=== PATIENT | male | born 1960 | race African-American/Black ===

== ENCOUNTER 2020-09-24 13:59 | Inpatient (IN) | payer OTHER ==
[~2020-09-24] VITALS: Ht 170.2 cm; Wt 104.1 kg
[2020-09-24] MEDS ORDERED: MORPHINE SULFATE 4 MG/ML SYR/VIAL IV ONE (14:15)
[2020-09-24] MEDS ORDERED: SODIUM CHLORIDE 0.9% 1,000 ML IVB ONE (14:15)
[2020-09-24] MEDS ORDERED: ONDANSETRON HCL 4 MG/2 ML VIAL IV ONE (14:15)
[2020-09-24 14:37] LABS: Basophils # (auto) 0 10 ^3/uL (0-0.2); Eosinophils # (auto) 0 10 ^3/uL (0-0.8); Hemoglobin 7.7 g/dL (13.5-17.5); Monocytes # (auto) 0.3 10 ^3/uL (0-1.3); Neutrophils # (auto) 1.6 10 ^3/uL (1.6-8.6); White Blood Cell 3.2 10^3/uL (4.4-10.8)
[2020-09-24 14:39] LABS: Basophils % (auto) 1.5 % (0.0-2.0); Eosinophils % (auto) 0.8 % (0.0-7.0); Hematocrit 27.4 % (41.0-53.0); Lymphocytes # (auto) 1.2 10 ^3/uL (0.4-5.4); Lymphocytes % (auto) 38.4 % (10.0-50.0); Mean Corpuscular Hemoglobin 16.4 pg (28.0-32.0); Mean Corpuscular Hgb Conc. 28.2 g/dL (32.0-36.0); Mean Corpuscular Volume 58.3 fL (80.0-100.0); Monocytes % (auto) 9.6 % (0.0-12.0); Neutrophils % (auto) 49.7 % (37.0-80.0); Nucleated Red Blood Cells % 0.2 %; Red Blood Cells 4.71 10^6/uL (4.5-5.90)
[2020-09-24 14:40] LABS: Red Cell Distribution Width 20.2 % (11.8-14.3)
[2020-09-24 14:57] LABS: Albumin 3.7 g/dL (3.4-5.0); BUN/Creatinine Ratio 9.5; Calcium 8.6 mg/dL (8.5-10.1); Potassium 3.9 mmol/L (3.5-5.1)
[2020-09-24 15:00] LABS: Bilirubin, Total 0.4 mg/dL (0.2-1.0); Total Protein 7.4 g/dL (6.4-8.2)
[2020-09-24 15:46] LABS: Urine Bacteria NONE SEEN /hpf (None Seen); Urine Blood 1+ /uL (Negative); Urine Mucus FEW (None Seen); Urine Specific Gravity 1.012 (1.001-1.035); Urine WBC 2 /hpf (0 - 3)
[2020-09-24] MEDS ORDERED: HYDROmorphone HCL 2 MG/ML VL IV ONE (16:30)
[2020-09-24] MEDS ORDERED: ONDANSETRON HCL 4 MG/2 ML VIAL IV PRN (17:45)
[2020-09-24] MEDS: methylPREDNISolone SOD SUCC 125 MG/2 ML VL IV SCH (21:57)
[2020-09-24] MEDS: NAPROXEN 500 MG TAB PO SCH (21:57)
[2020-09-25] MEDS: HYDROcodone-ACET 10/325MG TAB PO PRN (05:24)
[2020-09-25] MEDS ORDERED: TAM04C PO (06:49)
[2020-09-25] MEDS ORDERED: BUSP5TAB51 PO (06:49)
[2020-09-25] MEDS ORDERED: POTA10TA32 PO (06:49)
[2020-09-25 08:00] VITALS: BP 114/73
[2020-09-25 09:13] VITALS: BP 114/73
[2020-09-25] MEDS: SULFAMETHOX W/TRIMETH(800/160MG) DS TAB PO SCH ×2 (10:52→23:00)
[2020-09-25] MEDS: NAPROXEN 500 MG TAB PO SCH ×2 (10:52→23:01)
[2020-09-25] MEDS: ENOXAPARIN SOD 40 MG/0.4 ML SYRINGE SC SCH (10:52)
[2020-09-25] MEDS: PANTOPRAZOLE 40 MG TAB PO SCH ×2 (10:52→23:01)
[2020-09-25] MEDS: methylPREDNISolone SOD SUCC 125 MG/2 ML VL IV SCH (10:53)
[2020-09-25 12:55] VITALS: BP 132/86
[2020-09-25] MEDS: CARISOPRODOL 350 MG TAB PO SCH ×2 (15:32→23:02)
[2020-09-25] MEDS: TAMSULOSIN HYDROCHLORIDE 0.4 MG CAP PO SCH (16:10)
[2020-09-25 16:32] VITALS: BP 152/90
[2020-09-25 22:00] VITALS: BP 123/79
[2020-09-26] MEDS: methylPREDNISolone SOD SUCC 125 MG/2 ML VL IV SCH ×2 (00:19→09:18)
[2020-09-26 05:00] VITALS: BP 128/79
[2020-09-26 05:46] LABS: Basophils # (auto) 0 10 ^3/uL (0-0.2); Basophils % (auto) 0.1 % (0.0-2.0); Eosinophils # (auto) 0 10 ^3/uL (0-0.8); Hematocrit 26.3 % (41.0-53.0); Hemoglobin 7.6 g/dL (13.5-17.5); Mean Corpuscular Hemoglobin 16.8 pg (28.0-32.0)
[2020-09-26 05:49] LABS: Lymphocytes # (auto) 0.2 10 ^3/uL (0.4-5.4); Lymphocytes % (auto) 2.2 % (10.0-50.0); Mean Corpuscular Hgb Conc. 28.9 g/dL (32.0-36.0); Mean Corpuscular Volume 58.1 fL (80.0-100.0); Monocytes # (auto) 0.3 10 ^3/uL (0-1.3); Monocytes % (auto) 2.4 % (0.0-12.0); Neutrophils # (auto) 10.5 10 ^3/uL (1.6-8.6); Neutrophils % (auto) 95.3 % (37.0-80.0); Red Blood Cells 4.53 10^6/uL (4.5-5.90)
[2020-09-26] MEDS: CARISOPRODOL 350 MG TAB PO SCH ×3 (05:58→21:33)
[2020-09-26 06:00] LABS: Red Cell Distribution Width 20.6 % (11.8-14.3)
[2020-09-26 09:00] VITALS: BP 132/73
[2020-09-26] MEDS: PANTOPRAZOLE 40 MG TAB PO SCH ×2 (09:19→21:33)
[2020-09-26] MEDS: NAPROXEN 500 MG TAB PO SCH ×2 (09:19→21:33)
[2020-09-26] MEDS: SULFAMETHOX W/TRIMETH(800/160MG) DS TAB PO SCH ×2 (09:19→21:32)
[2020-09-26] MEDS: ENOXAPARIN SOD 40 MG/0.4 ML SYRINGE SC SCH (09:20)
[2020-09-26] MEDS: HYDROcodone-ACET 10/325MG TAB PO PRN ×3 (09:21→18:08)
[2020-09-26 13:00] VITALS: BP 133/83
[2020-09-26] MEDS: LACTULOSE 20Gm/30ML SOLN PO SCH ×4 (14:00→21:57)
[2020-09-26 17:00] VITALS: BP 127/85
[2020-09-26] MEDS: TAMSULOSIN HYDROCHLORIDE 0.4 MG CAP PO SCH (17:53)
[2020-09-26] MEDS: methylPREDNISolone SOD SUCC 40 MG/ML VL IV SCH (21:32)
[2020-09-26 22:00] VITALS: BP 108/69
[2020-09-27] MEDS: LACTULOSE 20Gm/30ML SOLN PO SCH ×5 (01:38→18:00)
[2020-09-27 05:00] VITALS: BP 134/84
[2020-09-27] MEDS: CARISOPRODOL 350 MG TAB PO SCH ×2 (05:23→14:15)
[2020-09-27 07:54] VITALS: BP 143/83
[2020-09-27] MEDS: HYDROcodone-ACET 10/325MG TAB PO PRN ×3 (08:42→18:22)
[2020-09-27] MEDS: SULFAMETHOX W/TRIMETH(800/160MG) DS TAB PO SCH (08:43)
[2020-09-27] MEDS: NAPROXEN 500 MG TAB PO SCH (08:43)
[2020-09-27] MEDS: PANTOPRAZOLE 40 MG TAB PO SCH (08:43)
[2020-09-27] MEDS: ENOXAPARIN SOD 40 MG/0.4 ML SYRINGE SC SCH (08:43)
[2020-09-27] MEDS: methylPREDNISolone SOD SUCC 40 MG/ML VL IV SCH (08:43)
[2020-09-27 12:30] VITALS: BP 138/81
[2020-09-27 12:32] VITALS: BP 143/83
[2020-09-27 16:36] VITALS: BP 130/76
[2020-09-27] MEDS: TAMSULOSIN HYDROCHLORIDE 0.4 MG CAP PO SCH (18:22)
== END 2020-09-27 19:30 | DRG 554 ==
LOC: ER 13:59 → EDSEX 13:59 → EEVIPCON 13:59 → EDBD 13:59 → OVERFLOW 17:54 → WEST WING 09-25 04:43
PROVIDERS: ADMIT Internal Medicine; ATTEND Internal Medicine
DX: M13.851 Other specified arthritis, right hip (principal); N13.8 Other obstructive and reflux uropathy; D64.9 Anemia, unspecified; F41.9 Anxiety disorder, unspecified; M54.9 Dorsalgia, unspecified; E78.5 Hyperlipidemia, unspecified; M41.86 Other forms of scoliosis, lumbar region; N40.1 Benign prostatic hyperplasia with lower urinary tract symptoms; Z20.822 Contact with and (suspected) exposure to COVID-19; I10 Essential (primary) hypertension; M47.816 Spondylosis without myelopathy or radiculopathy, lumbar region; Z80.42 Family history of malignant neoplasm of prostate; Z83.3 Family history of diabetes mellitus; Z82.3 Family history of stroke; Z87.442 Personal history of urinary calculi; Z86.73 Personal history of transient ischemic attack (TIA), and cerebral infarction without residual deficits; N41.9 Inflammatory disease of prostate, unspecified
CPT/HCPCS: 36415; 51702; 72100; 72170; 74018; 74176; 80053; 81001; 84154; 85025; 86850; 86900; 86901; 87426; 93005; 93971; 96361; 96374; 96375; G0378; J2405

== ENCOUNTER 2021-01-26 03:16 | Emergency (ER) | payer OTHER ==
[~2021-01-26] VITALS: Ht 170.2 cm; Wt 102.1 kg
[~2021-01-26 03:16] MED LIST: BUSP5TAB51 PO; POTA10TA32 PO; TAM04C PO
[2021-01-26 04:35] LABS: Urine Bacteria NONE SEEN /hpf (None Seen); Urine Blood Negative /uL (Negative); Urine Mucus FEW (None Seen); Urine Specific Gravity 1.013 (1.001-1.035); Urine WBC <1 /hpf (0 - 3)
[2021-01-26 08:56] VITALS: BP 150/84
== END 2021-01-26 09:00 ==
LOC: EEVIPCON 03:16 → ER 03:16
DX: N40.1 Benign prostatic hyperplasia with lower urinary tract symptoms (principal); R39.11 Hesitancy of micturition; K21.9 Gastro-esophageal reflux disease without esophagitis; J45.909 Unspecified asthma, uncomplicated; I10 Essential (primary) hypertension; E78.5 Hyperlipidemia, unspecified; Z86.73 Personal history of transient ischemic attack (TIA), and cerebral infarction without residual deficits; Z79.899 Other long term (current) drug therapy
CPT/HCPCS: 81001

== ENCOUNTER 2021-04-03 23:15 | Inpatient (IN) | payer OTHER ==
[~2021-04-03] VITALS: Ht 182.9 cm; Wt 107.0 kg
[2021-04-03 23:58] LABS: Basophils # (auto) 0.1 10 ^3/uL (0-0.2); Eosinophils # (auto) 0 10 ^3/uL (0-0.8); Hemoglobin 9.6 g/dL (13.5-17.5); Lymphocytes # (auto) 1.6 10 ^3/uL (0.4-5.4); Monocytes # (auto) 0.4 10 ^3/uL (0-1.3); Neutrophils # (auto) 1.6 10 ^3/uL (1.6-8.6); Neutrophils % (auto) 43.3 % (37.0-80.0); Red Cell Distribution Width 17.5 % (11.8-14.3); White Blood Cell 3.8 10^3/uL (4.4-10.8)
[2021-04-03 23:59] LABS: Basophils % (auto) 3.1 % (0.0-2.0); Eosinophils % (auto) 0.7 % (0.0-7.0); Hematocrit 32.9 % (41.0-53.0); Lymphocytes % (auto) 41.9 % (10.0-50.0); Mean Corpuscular Hemoglobin 19.1 pg (28.0-32.0); Mean Corpuscular Hgb Conc. 29.2 g/dL (32.0-36.0); Mean Corpuscular Volume 65.5 fL (80.0-100.0); Nucleated Red Blood Cells % 0.2 %; Red Blood Cells 5.03 10^6/uL (4.5-5.90)
[2021-04-04 00:13] LABS: Albumin 3.6 g/dL (3.4-5.0); BUN/Creatinine Ratio 10.6; Calcium 8.7 mg/dL (8.5-10.1); Potassium 3.5 mmol/L (3.5-5.1)
[2021-04-04 00:15] LABS: Bilirubin, Total 0.4 mg/dL (0.2-1.0)
[2021-04-04] MEDS ORDERED: ONDANSETRON HCL 4 MG/2 ML VIAL IV ONE (00:15)
[2021-04-04] MEDS ORDERED: MORPHINE SULFATE 4 MG/ML SYR/VIAL IV ONE (00:15)
[2021-04-04 01:25] LABS: Magnesium 1.8 mg/dL (1.6-2.6)
[2021-04-04 01:32] LABS: INR 1.07 (0.9-1.15); Partial Thromboplastin Time 27.6 sec (23.6-33.0)
[2021-04-04 02:26] LABS: Urine Bacteria NONE SEEN /hpf (None Seen); Urine Blood Negative /uL (Negative); Urine Mucus FEW (None Seen); Urine Specific Gravity 1.011 (1.001-1.035); Urine WBC 1 /hpf (0 - 3)
[2021-04-04] MEDS ORDERED: PANTOPRAZOLE 40 MG/10 ML VIAL INJ IV ONE (05:15)
[2021-04-04] MEDS ORDERED: ONDANSETRON HCL 4 MG/2 ML VIAL IM PRN (07:45)
[2021-04-04] MEDS ORDERED: NITROGLYCERIN 0.4 MG SL TAB SL PRN (08:00)
[2021-04-04] MEDS ORDERED: MORPHINE SULFATE INJECTION 2 MG/ML SYRG IV PRN (08:00)
[2021-04-04] MEDS ORDERED: ONDANSETRON HCL 4 MG/2 ML VIAL IV PRN (08:45)
[2021-04-04] MEDS: D5W/SOD CHL 0.45% 1,000 ML IV SCH ×2 (08:49→10:49)
[2021-04-04] MEDS ORDERED: DOCU100T15 PO (10:42)
[2021-04-04] MEDS ORDERED: ASPI1TAB37 PO (10:42)
[2021-04-04] MEDS ORDERED: AMLO-496 PO (10:42)
[2021-04-04] MEDS ORDERED: ATOR20TA50 PO (10:42)
[2021-04-04] MEDS ORDERED: OMEP20TA PO (10:42)
[2021-04-04] MEDS ORDERED: AMLO5CAP40 PO (10:54)
[2021-04-04] MEDS ORDERED: ALBUAER3 IN (10:54)
[2021-04-04] MEDS ORDERED: FERR324T25 PO (10:54)
[2021-04-04] MEDS ORDERED: GOLYTELY 4L KIT PO ONE (13:45)
[2021-04-04 22:37] VITALS: BP 150/94
[2021-04-05 05:11] VITALS: BP 142/99
[2021-04-05 05:46] LABS: Basophils # (auto) 0 10 ^3/uL (0-0.2); Eosinophils # (auto) 0.1 10 ^3/uL (0-0.8); Hemoglobin 9.3 g/dL (13.5-17.5); Lymphocytes # (auto) 1.1 10 ^3/uL (0.4-5.4); Red Cell Distribution Width 17.2 % (11.8-14.3); White Blood Cell 3.2 10^3/uL (4.4-10.8)
[2021-04-05 05:48] LABS: Basophils % (auto) 1.3 % (0.0-2.0); Eosinophils % (auto) 1.9 % (0.0-7.0); Hematocrit 31.9 % (41.0-53.0); Lymphocytes % (auto) 33.9 % (10.0-50.0); Mean Corpuscular Hemoglobin 19.2 pg (28.0-32.0); Mean Corpuscular Hgb Conc. 29.3 g/dL (32.0-36.0); Mean Corpuscular Volume 65.7 fL (80.0-100.0); Monocytes # (auto) 0.4 10 ^3/uL (0-1.3); Neutrophils # (auto) 1.7 10 ^3/uL (1.6-8.6); Neutrophils % (auto) 51.9 % (37.0-80.0); Red Blood Cells 4.86 10^6/uL (4.5-5.90)
[2021-04-05 06:00] LABS: Potassium 3.4 mmol/L (3.5-5.1)
[2021-04-05 06:08] LABS: BUN/Creatinine Ratio 8.2; Calcium 8.5 mg/dL (8.5-10.1)
[2021-04-05 09:00] VITALS: BP 134/80
[2021-04-05] MEDS: FINASTERIDE 5 MG TAB PO SCH (09:42)
[2021-04-05] MEDS: PANTOPRAZOLE 40 MG/10 ML VIAL INJ IV SCH ×2 (09:47→20:54)
[2021-04-05] MEDS ORDERED: SODIUM CHLORIDE LOCK 10 ML ONE (10:32)
[2021-04-05] MEDS ORDERED: diphenhdrAMINE HCL 50 MG/1 ML VL ONE (10:32)
[2021-04-05] MEDS: MIDAZOLAM HCL 5 MG/ML-1ML VIAL ONE ×2 (10:46→10:49)
[2021-04-05] MEDS: fentaNYL CITRATE 100 MCG/2 ML VL ONE ×2 (10:46→10:49)
[2021-04-05 13:00] VITALS: BP 136/89
[2021-04-05 17:00] VITALS: BP 116/84
[2021-04-05 22:15] VITALS: BP 136/87
[2021-04-05] MEDS: D5W/SOD CHL 0.45% 1,000 ML IV SCH (23:45)
[2021-04-06] MEDS ORDERED: ACETAMINOPHEN 650 mg PER 20.3 mL UD PO PRN ×2 (01:15)
[2021-04-06] MEDS ORDERED: ACETAMINOPHEN 325 MG TAB PO PRN (01:30)
[2021-04-06 05:21] VITALS: BP 154/97
[2021-04-06] MEDS: HYDROmorphone HCL 2 MG/ML VL IV PRN ×2 (06:09→21:41)
[2021-04-06 09:00] VITALS: BP 144/91
[2021-04-06] MEDS: FINASTERIDE 5 MG TAB PO SCH (10:27)
[2021-04-06] MEDS: PANTOPRAZOLE 40 MG/10 ML VIAL INJ IV SCH ×2 (10:28→21:27)
[2021-04-06 13:00] VITALS: BP 146/85
[2021-04-06 17:00] VITALS: BP 136/72
[2021-04-06] MEDS: D5W/SOD CHL 0.45% 1,000 ML IV SCH (19:57)
[2021-04-06 22:00] VITALS: BP 143/89
[2021-04-07 05:00] VITALS: BP 128/82
[2021-04-07 09:00] VITALS: BP 150/85
[2021-04-07] MEDS: FINASTERIDE 5 MG TAB PO SCH (10:51)
[2021-04-07] MEDS: PANTOPRAZOLE 40 MG/10 ML VIAL INJ IV SCH ×2 (10:51→22:40)
[2021-04-07 13:00] VITALS: BP 141/77
[2021-04-07] MEDS: HYDROmorphone HCL 2 MG/ML VL IV PRN (13:15)
[2021-04-07] MEDS: D5W/SOD CHL 0.45% 1,000 ML IV SCH (15:45)
[2021-04-07 16:52] VITALS: BP 136/82
[2021-04-07 22:00] VITALS: BP 124/80
[2021-04-08 05:42] VITALS: BP 129/88
[2021-04-08 08:15] VITALS: BP 152/90
[2021-04-08 08:52] VITALS: BP 152/90
[2021-04-08] MEDS: PANTOPRAZOLE 40 MG/10 ML VIAL INJ IV SCH (09:23)
[2021-04-08] MEDS: FINASTERIDE 5 MG TAB PO SCH (09:23)
[2021-04-08 11:05] VITALS: BP 158/90
== END 2021-04-08 12:30 | DRG 393 ==
LOC: ER 23:15 → EEVIPCON 23:15 → EDBD 23:15 → TELE 04-04 07:58 → TELE-WESTW 04-04 22:12
PROVIDERS: ADMIT Specialist; ATTEND Specialist
PROC: 0DJD8ZZ Inspection of Lower Intestinal Tract, Via Natural or Artificial Opening Endoscopic (ICD-10-PCS; principal; 2021-04-05 10:51)
DX: K64.8 Other hemorrhoids (principal); K57.31 Diverticulosis of large intestine without perforation or abscess with bleeding; I10 Essential (primary) hypertension; Z20.822 Contact with and (suspected) exposure to COVID-19; E78.5 Hyperlipidemia, unspecified; J45.909 Unspecified asthma, uncomplicated; N40.1 Benign prostatic hyperplasia with lower urinary tract symptoms; D50.0 Iron deficiency anemia secondary to blood loss (chronic); M19.90 Unspecified osteoarthritis, unspecified site; F41.9 Anxiety disorder, unspecified; K21.9 Gastro-esophageal reflux disease without esophagitis; R33.8 Other retention of urine; Z79.899 Other long term (current) drug therapy; Z82.49 Family history of ischemic heart disease and other diseases of the circulatory system; Z86.73 Personal history of transient ischemic attack (TIA), and cerebral infarction without residual deficits; Z87.442 Personal history of urinary calculi; Z88.0 Allergy status to penicillin; Z88.8 Allergy status to other drugs, medicaments and biological substances; Z90.49 Acquired absence of other specified parts of digestive tract; Z83.3 Family history of diabetes mellitus; Z80.8 Family history of malignant neoplasm of other organs or systems
CPT/HCPCS: 36415; 45378; 71045; 74176; 80048; 80053; 81001; 82150; 83690; 83735; 85025; 85610; 85730; 86850; 86900; 86901; 87081; 87426; 93005; 93306; 96361; 96374; 96375; C9113; G0378; J2250; J2405

== ENCOUNTER 2021-05-21 09:32 | Inpatient (IN) | payer OTHER ==
[~2021-05-21] VITALS: Ht 170.2 cm; Wt 104.9 kg
[~2021-05-21 09:32] MED LIST changes: +ALBUAER3 IN; +AMLO-496 PO; +ASPI1TAB37 PO; +ATOR20TA50 PO; -BUSP5TAB51 PO; +DOCU100T15 PO; +FERR324T25 PO; +OMEP20TA PO
[2021-05-21 11:56] LABS: Eosinophils # (auto) 0 10 ^3/uL (0-0.8); Eosinophils % (auto) 0.7 % (0.0-7.0); Monocytes # (auto) 0.4 10 ^3/uL (0-1.3); White Blood Cell 3.6 10^3/uL (4.4-10.8)
[2021-05-21 11:59] LABS: Basophils # (auto) 0 10 ^3/uL (0-0.2); Basophils % (auto) 0.6 % (0.0-2.0); Hematocrit 23.9 % (41.0-53.0); Lymphocytes # (auto) 1.3 10 ^3/uL (0.4-5.4); Lymphocytes % (auto) 35.7 % (10.0-50.0); Mean Corpuscular Hemoglobin 18.3 pg (28.0-32.0); Mean Corpuscular Hgb Conc. 29.2 g/dL (32.0-36.0); Mean Corpuscular Volume 62.7 fL (80.0-100.0); Monocytes % (auto) 10.4 % (0.0-12.0); Neutrophils # (auto) 1.9 10 ^3/uL (1.6-8.6); Neutrophils % (auto) 52.6 % (37.0-80.0); Nucleated Red Blood Cells % 0.2 %; Red Blood Cells 3.82 10^6/uL (4.5-5.90); Red Cell Distribution Width 18.7 % (11.8-14.3)
[2021-05-21 12:14] LABS: Hemoglobin 6.9 g/dL (13.5-17.5)
[2021-05-21 12:33] LABS: INR 1.04 (0.9-1.15); Partial Thromboplastin Time 25.4 sec (23.6-33.0)
[2021-05-21 13:06] LABS: Albumin 3.7 g/dL (3.4-5.0); Calcium 8.6 mg/dL (8.5-10.1); Potassium 4.4 mmol/L (3.5-5.1)
[2021-05-21 13:09] LABS: BUN/Creatinine Ratio 10.2; Bilirubin, Total 0.5 mg/dL (0.2-1.0)
[2021-05-21] MEDS ORDERED: NITROGLYCERIN 0.4 MG SL TAB SL PRN (14:30)
[2021-05-21] MEDS ORDERED: SODIUM CHLORIDE 0.9% 1,000 ML IV ONE (14:30)
[2021-05-21] MEDS ORDERED: MORPHINE SULFATE INJECTION 2 MG/ML SYRG IV PRN (14:30)
[2021-05-21] MEDS ORDERED: FINA5TAB4 PO (14:38)
[2021-05-21] MEDS ORDERED: FURO1TAB33 PO (14:38)
[2021-05-21] MEDS ORDERED: POTA10TA51 PO (14:38)
[2021-05-21] MEDS: HYDROcodone-ACET 10/325MG TAB PO PRN ×2 (16:56→22:48)
[2021-05-21] MEDS: ONDANSETRON HCL 4 MG/2 ML VIAL IV PRN ×2 (16:56→22:15)
[2021-05-21 17:40] VITALS: BP 133/81
[2021-05-21 17:55] VITALS: BP 136/76
[2021-05-21 18:25] VITALS: BP 125/76
[2021-05-21 18:55] VITALS: BP 136/82
[2021-05-21 20:40] VITALS: BP 112/67
[2021-05-21] MEDS: PANTOPRAZOLE 40 MG/10 ML VIAL INJ IV SCH (21:58)
[2021-05-21 22:00] VITALS: BP 132/92
[2021-05-22] VITALS (10 sets, daily range): BP systolic 111–129; BP diastolic 56–89
[2021-05-22] MEDS: ONDANSETRON HCL 4 MG/2 ML VIAL IV PRN (02:23)
[2021-05-22] MEDS: HYDROcodone-ACET 10/325MG TAB PO PRN ×3 (02:23→21:59)
[2021-05-22 07:25] LABS: Eosinophils # (auto) 0 10 ^3/uL (0-0.8); Mean Corpuscular Volume 64.5 fL (80.0-100.0); Neutrophils # (auto) 1.4 10 ^3/uL (1.6-8.6); Red Cell Distribution Width 19.7 % (11.8-14.3)
[2021-05-22 07:32] LABS: Basophils # (auto) 0.1 10 ^3/uL (0-0.2); Basophils % (auto) 1.7 % (0.0-2.0); Eosinophils % (auto) 1.5 % (0.0-7.0); Hematocrit 22.4 % (41.0-53.0); Lymphocytes # (auto) 1.3 10 ^3/uL (0.4-5.4); Lymphocytes % (auto) 41.5 % (10.0-50.0); Mean Corpuscular Hemoglobin 18.8 pg (28.0-32.0); Mean Corpuscular Hgb Conc. 29.1 g/dL (32.0-36.0); Monocytes # (auto) 0.3 10 ^3/uL (0-1.3); Monocytes % (auto) 9.3 % (0.0-12.0); Nucleated Red Blood Cells % 0.1 %; Red Blood Cells 3.47 10^6/uL (4.5-5.90)
[2021-05-22 07:36] LABS: Hemoglobin 6.5 g/dL (13.5-17.5)
[2021-05-22] MEDS: PANTOPRAZOLE 40 MG/10 ML VIAL INJ IV SCH ×2 (08:31→21:57)
[2021-05-22] MEDS: TAMSULOSIN HYDROCHLORIDE 0.4 MG CAP PO SCH (20:04)
[2021-05-23 05:00] VITALS: BP 125/70
[2021-05-23 07:15] LABS: Basophils # (auto) 0 10 ^3/uL (0-0.2); Basophils % (auto) 0.7 % (0.0-2.0); Eosinophils # (auto) 0.1 10 ^3/uL (0-0.8); Eosinophils % (auto) 1.6 % (0.0-7.0); Hematocrit 25.6 % (41.0-53.0); Hemoglobin 7.6 g/dL (13.5-17.5); Lymphocytes # (auto) 1.1 10 ^3/uL (0.4-5.4); Lymphocytes % (auto) 36.7 % (10.0-50.0); Mean Corpuscular Hemoglobin 19.7 pg (28.0-32.0); Mean Corpuscular Hgb Conc. 29.6 g/dL (32.0-36.0); Mean Corpuscular Volume 66.6 fL (80.0-100.0); Monocytes # (auto) 0.3 10 ^3/uL (0-1.3); Monocytes % (auto) 11.3 % (0.0-12.0); Neutrophils # (auto) 1.5 10 ^3/uL (1.6-8.6); Neutrophils % (auto) 49.7 % (37.0-80.0); Nucleated Red Blood Cells % 0.6 %; Red Blood Cells 3.84 10^6/uL (4.5-5.90); White Blood Cell 3.1 10^3/uL (4.4-10.8)
[2021-05-23 07:19] LABS: Red Cell Distribution Width 21.2 % (11.8-14.3)
[2021-05-23 08:49] VITALS: BP 119/71
[2021-05-23] MEDS: PANTOPRAZOLE 40 MG/10 ML VIAL INJ IV SCH ×2 (10:02→21:06)
[2021-05-23 12:42] VITALS: BP 126/80
[2021-05-23 16:33] VITALS: BP 136/73
[2021-05-23] MEDS: TAMSULOSIN HYDROCHLORIDE 0.4 MG CAP PO SCH (18:02)
[2021-05-23 22:00] VITALS: BP 115/65
[2021-05-24 05:28] VITALS: BP 140/86
[2021-05-24 08:19] LABS: Basophils # (auto) 0 10 ^3/uL (0-0.2); Eosinophils # (auto) 0 10 ^3/uL (0-0.8); Eosinophils % (auto) 0.4 % (0.0-7.0); Hemoglobin 7.5 g/dL (13.5-17.5); Lymphocytes # (auto) 0.7 10 ^3/uL (0.4-5.4); Lymphocytes % (auto) 25.9 % (10.0-50.0); Mean Corpuscular Hemoglobin 19.2 pg (28.0-32.0); Mean Corpuscular Volume 66.5 fL (80.0-100.0); Monocytes # (auto) 0.3 10 ^3/uL (0-1.3); Monocytes % (auto) 11.2 % (0.0-12.0); Neutrophils # (auto) 1.7 10 ^3/uL (1.6-8.6); Neutrophils % (auto) 61.5 % (37.0-80.0); Red Blood Cells 3.91 10^6/uL (4.5-5.90); Red Cell Distribution Width 21.6 % (11.8-14.3); White Blood Cell 2.8 10^3/uL (4.4-10.8)
[2021-05-24 09:00] VITALS: BP 139/86
[2021-05-24] MEDS: PANTOPRAZOLE 40 MG/10 ML VIAL INJ IV SCH ×2 (09:41→21:14)
[2021-05-24 12:34] VITALS: BP 132/86
[2021-05-24 16:40] VITALS: BP 140/102
[2021-05-24] MEDS: TAMSULOSIN HYDROCHLORIDE 0.4 MG CAP PO SCH (18:07)
[2021-05-24 22:02] VITALS: BP 125/96
[2021-05-25 05:30] VITALS: BP 109/75
[2021-05-25 06:23] LABS: Basophils # (auto) 0 10 ^3/uL (0-0.2); Basophils % (auto) 0.9 % (0.0-2.0); Eosinophils # (auto) 0 10 ^3/uL (0-0.8); Eosinophils % (auto) 0.9 % (0.0-7.0); Hematocrit 25.4 % (41.0-53.0); Hemoglobin 7.4 g/dL (13.5-17.5); Lymphocytes % (auto) 34.4 % (10.0-50.0); Mean Corpuscular Hemoglobin 19.1 pg (28.0-32.0); Mean Corpuscular Hgb Conc. 29.1 g/dL (32.0-36.0); Mean Corpuscular Volume 65.4 fL (80.0-100.0); Monocytes # (auto) 0.4 10 ^3/uL (0-1.3); Monocytes % (auto) 13.6 % (0.0-12.0); Neutrophils # (auto) 1.4 10 ^3/uL (1.6-8.6); Neutrophils % (auto) 50.2 % (37.0-80.0); Nucleated Red Blood Cells % 0.1 %; Red Blood Cells 3.88 10^6/uL (4.5-5.90); White Blood Cell 2.8 10^3/uL (4.4-10.8)
[2021-05-25 06:26] LABS: Red Cell Distribution Width 21.3 % (11.8-14.3)
[2021-05-25 06:40] LABS: Albumin 3.1 g/dL (3.4-5.0); Calcium 8.5 mg/dL (8.5-10.1)
[2021-05-25 06:45] LABS: BUN/Creatinine Ratio 6.1; Bilirubin, Total 0.7 mg/dL (0.2-1.0)
[2021-05-25 09:00] VITALS: BP 137/86
[2021-05-25] MEDS ORDERED: diphenhdrAMINE HCL 50 MG/1 ML VL ONE (09:07)
[2021-05-25] MEDS ORDERED: LIDOCAINE VISCOUS 2% 15ML UD ONE (09:09)
[2021-05-25] MEDS: MIDAZOLAM HCL 5 MG/ML-1ML VIAL ONE ×2 (09:40→09:43)
[2021-05-25] MEDS: fentaNYL CITRATE 100 MCG/2 ML VL ONE ×2 (09:40→09:43)
[2021-05-25] MEDS: DOCUSATE SOD 100 MG CAP PO SCH ×2 (10:33→21:58)
[2021-05-25] MEDS: PANTOPRAZOLE 40 MG TAB PO SCH (10:33)
[2021-05-25 12:36] VITALS: BP 115/72
[2021-05-25 16:59] VITALS: BP 119/79
[2021-05-25] MEDS: FERROUS SULFATE 325mg EC TAB PO SCH (17:56)
[2021-05-25] MEDS: TAMSULOSIN HYDROCHLORIDE 0.4 MG CAP PO SCH (17:57)
[2021-05-25] MEDS: HYDROCORTISONE ACET 25 MG RECTAL SUPP PR SCH (21:57)
[2021-05-25 22:00] VITALS: BP 112/70
[2021-05-26 05:00] VITALS: BP 108/67
[2021-05-26 07:27] LABS: Mean Corpuscular Volume 65.4 fL (80.0-100.0); White Blood Cell 2.8 10^3/uL (4.4-10.8)
[2021-05-26 07:29] LABS: Hematocrit 24.9 % (41.0-53.0); Hemoglobin 7.4 g/dL (13.5-17.5); Mean Corpuscular Hemoglobin 19.5 pg (28.0-32.0); Mean Corpuscular Hgb Conc. 29.9 g/dL (32.0-36.0); Red Blood Cells 3.81 10^6/uL (4.5-5.90)
[2021-05-26 07:49] LABS: Red Cell Distribution Width 21.1 % (11.8-14.3)
[2021-05-26 07:51] LABS: Band Neutrophils % (manual) 0; Basophils % (manual) 0 (0.0-2.0); Blast Cells 0; Eosinophils % (manual) 0 (0-7); Metamyelocytes % 0; Myelocytes % 0; Promyelocytes % 0; Reactive Lymphocytes 0
[2021-05-26] MEDS: FERROUS SULFATE 325mg EC TAB PO SCH (08:15)
[2021-05-26] MEDS: DOCUSATE SOD 100 MG CAP PO SCH (08:15)
[2021-05-26] MEDS: PANTOPRAZOLE 40 MG TAB PO SCH (08:15)
[2021-05-26] MEDS: HYDROCORTISONE ACET 25 MG RECTAL SUPP PR SCH (08:15)
[2021-05-26 08:30] VITALS: BP 125/83
[2021-05-26] MEDS ORDERED: DOCU100C10 PO (11:54)
[2021-05-26 12:30] VITALS: BP 113/81
[2021-05-26 12:54] LABS: Lymphocytes % (manual) 25 (10.0-50.0); Monocytes % (manual) 7 (0-12)
== END 2021-05-26 15:50 | DRG 393 ==
LOC: EDBD 09:32 → EEVIPCON 09:32 → ER 09:32 → OVERFLOW 09:33 → WEST WING 21:43
PROVIDERS: ADMIT Internal Medicine; ATTEND Internal Medicine
PROC: 30233N1 Transfusion of Nonautologous Red Blood Cells into Peripheral Vein, Percutaneous Approach (ICD-10-PCS; 2021-05-21)
PROC: 0DB68ZX Excision of Stomach, Via Natural or Artificial Opening Endoscopic, Diagnostic (ICD-10-PCS; principal; 2021-05-25 09:38)
DX: K64.9 Unspecified hemorrhoids (principal); K29.71 Gastritis, unspecified, with bleeding; E78.5 Hyperlipidemia, unspecified; I10 Essential (primary) hypertension; J45.909 Unspecified asthma, uncomplicated; D50.9 Iron deficiency anemia, unspecified; F41.9 Anxiety disorder, unspecified; Z20.822 Contact with and (suspected) exposure to COVID-19; K21.9 Gastro-esophageal reflux disease without esophagitis; K44.9 Diaphragmatic hernia without obstruction or gangrene; M79.89 Other specified soft tissue disorders; M19.90 Unspecified osteoarthritis, unspecified site; Z80.1 Family history of malignant neoplasm of trachea, bronchus and lung; Z82.3 Family history of stroke; Z82.49 Family history of ischemic heart disease and other diseases of the circulatory system; Z86.73 Personal history of transient ischemic attack (TIA), and cerebral infarction without residual deficits; Z86.16 Personal history of COVID-19; Z87.442 Personal history of urinary calculi; Z91.011 Allergy to milk products; Z88.0 Allergy status to penicillin; Z91.018 Allergy to other foods; Z90.49 Acquired absence of other specified parts of digestive tract
CPT/HCPCS: 36415; 36430; 43239; 71045; 74176; 80053; 85007; 85025; 85027; 85610; 85730; 86850; 86900; 86901; 86920; 87426; 93005; 93971; 96361; 96374; 96375; C9113; G0378; J2250; J2405

== ENCOUNTER 2024-01-19 05:18 | Inpatient (IN) | payer MEDICARE, MEDICAID ==
[~2024-01-19] VITALS: Ht 170.2 cm; Wt 108.5 kg
[~2024-01-19 05:18] MED LIST changes: -AMLO-496 PO; +AMLO1TAB23 PO; -ASPI1TAB37 PO; +DOCU-265 PO; -DOCU100T15 PO; +FINA5TAB4 PO; +FURO1TAB33 PO; -OMEP20TA PO; +POTA-36 PO; -POTA10TA32 PO; -TAM04C PO; +TAMS-35 PO
[2024-01-19 06:41] LABS: Basophils # (auto) 0 10 ^3/uL (0-0.2); Eosinophils # (auto) 0.1 10 ^3/uL (0-0.8); Lymphocytes # (auto) 1.1 10 ^3/uL (0.4-5.4); Monocytes # (auto) 0.4 10 ^3/uL (0-1.3); Nucleated Red Blood Cells % 0.1 %; White Blood Cell 3.9 10^3/uL (4.4-10.8)
[2024-01-19 06:43] LABS: Basophils % (auto) 0.5 % (0.0-2.0); Eosinophils % (auto) 1.5 % (0.0-7.0); Hemoglobin 12.8 g/dL (13.5-17.5); Lymphocytes % (auto) 28.9 % (10.0-50.0); Mean Corpuscular Hgb Conc. 32.1 g/dL (32.0-36.0); Monocytes % (auto) 9.2 % (0.0-12.0); Neutrophils # (auto) 2.4 10 ^3/uL (1.6-8.6); Neutrophils % (auto) 59.9 % (37.0-80.0); Red Blood Cells 4.94 10^6/uL (4.5-5.90); Red Cell Distribution Width 15.5 % (11.8-14.3)
[2024-01-19 06:46] LABS: Alanine Aminotransferase 20 U/L (7-40); Albumin 4.1 g/dL (3.2-4.8); Alkaline Phosphatase 86 U/L (46-116); Anion Gap 7 (5-15); Aspartate Aminotransferase 21 U/L (13-40); BUN/Creatinine Ratio 7.1 (10.0-20.0); Bilirubin, Total 0.7 mg/dL (0.2-1.0); Blood Urea Nitrogen 6 mg/dL (9-23); Calcium 9.7 mg/dL (8.7-10.4); Carbon Dioxide 23 mmol/L (20-30); Chloride 112 mmol/L (98-107); Glucose 91 mg/dL (74-106); Lipase 53 U/L (12-53); Potassium 3.6 mmol/L (3.5-5.1); Sodium 142 mmol/L (136-145); Total Protein 6.9 g/dL (5.7-8.2)
[2024-01-19 07:18] LABS: Urine Bacteria None Seen /hpf (None Seen)
[2024-01-19 07:30] LABS: Urine Blood Negative /uL (Negative); Urine Clarity Clear (Clear); Urine Color Colorless (Yellow); Urine Protein, UAD Negative (Negative); Urine Specific Gravity 1.007 (1.001-1.035); Urine Urobilinogen Normal (Negative); Urine WBC <1 /hpf (0 - 3); Urine pH 6.5 (5.0-9.0)
[2024-01-19] MEDS: KETOROLAC TROMETH 30 MG/ML 1ML VIAL IV ONE (08:31)
[2024-01-19] MEDS: cloNIDine HCL 0.1 MG TAB PO ONE (08:31)
[2024-01-19] MEDS ORDERED: NORT50CA57 PO (10:30)
[2024-01-19] MEDS ORDERED: SERT-289 PO (10:30)
[2024-01-19] MEDS ORDERED: ATEN25TA PO (10:30)
[2024-01-19] MEDS ORDERED: LISI20TA56 PO (10:30)
[2024-01-19] MEDS ORDERED: hydrALAZINE HCL 20 MG/ML VL IV PRN (10:45)
[2024-01-19] MEDS ORDERED: ALBUTEROL SULF 2.5 MG/0.5ML(0.5%) NEB SOLN NEB PRN (10:45)
[2024-01-19] MEDS ORDERED: ONDANSETRON HCL 4 MG/2 ML VIAL IV PRN (10:45)
[2024-01-19 11:34] LABS: Triglycerides 57 mg/dL (< 150)
[2024-01-19 11:35] LABS: LDL Cholesterol 45 mg/dL (< 100)
[2024-01-19 11:36] LABS: Cholesterol 125 mg/dL (< 200); HDL Cholesterol 66 mg/dL (40-59)
[2024-01-19] MEDS: HYDROcodone-ACET 5/325MG TAB PO PRN (14:07)
[2024-01-19 14:11] VITALS: PULSE 59; RESP 18; O2SAT 98
[2024-01-19] MEDS: MORPHINE SULFATE INJ 2 MG/ml SYRG IV PRN (15:33)
[2024-01-19 15:34] VITALS: BP 142/95; PULSE 61; RESP 20; TEMP 98; O2SAT 98
[2024-01-19 15:47] VITALS: PULSE 44; RESP 18; O2SAT 95
[2024-01-19 20:00] VITALS: PULSE 52
[2024-01-19 21:00] VITALS: BP 134/92; PULSE 51; RESP 19; TEMP 98.6; O2SAT 97
[2024-01-19 21:33] VITALS: BP 134/92; PULSE 60; RESP 18; TEMP 98.6; O2SAT 96; O2SAT 98
[2024-01-19] MEDS: DOCUSATE SOD 100 MG CAP PO SCH (21:56)
[2024-01-20] VITALS (9 sets, daily range): BP systolic 107–165; BP diastolic 56–97; PULSE 46–99; RESP 16–21; TEMP 98–98.3; O2SAT 96–100
[2024-01-20 05:10] LABS: Basophils # (auto) 0 10 ^3/uL (0-0.2); Basophils % (auto) 0.8 % (0.0-2.0); Eosinophils # (auto) 0.1 10 ^3/uL (0-0.8); Lymphocytes # (auto) 1.1 10 ^3/uL (0.4-5.4); Monocytes # (auto) 0.3 10 ^3/uL (0-1.3); Neutrophils # (auto) 1.8 10 ^3/uL (1.6-8.6); Nucleated Red Blood Cells % 0.1 %; White Blood Cell 3.3 10^3/uL (4.4-10.8)
[2024-01-20 05:13] LABS: Eosinophils % (auto) 1.8 % (0.0-7.0); Hematocrit 40.7 % (41.0-53.0); Lymphocytes % (auto) 33.7 % (10.0-50.0); Mean Corpuscular Hemoglobin 25.8 pg (28.0-32.0); Mean Corpuscular Hgb Conc. 31.8 g/dL (32.0-36.0); Monocytes % (auto) 9.4 % (0.0-12.0); Neutrophils % (auto) 54.3 % (37.0-80.0); Red Blood Cells 5.02 10^6/uL (4.5-5.90); Red Cell Distribution Width 15.8 % (11.8-14.3)
[2024-01-20 05:24] LABS: Alanine Aminotransferase 18 U/L (7-40); Albumin 3.9 g/dL (3.2-4.8); Alkaline Phosphatase 82 U/L (46-116); Anion Gap 4 (5-15); Aspartate Aminotransferase 15 U/L (13-40); BUN/Creatinine Ratio 7.7 (10.0-20.0); Blood Urea Nitrogen 7 mg/dL (9-23); Calcium 9.7 mg/dL (8.7-10.4); Carbon Dioxide 27 mmol/L (20-30); Chloride 111 mmol/L (98-107); Glucose 95 mg/dL (74-106); Potassium 3.7 mmol/L (3.5-5.1); Sodium 142 mmol/L (136-145)
[2024-01-20 05:25] LABS: Total Protein 6.5 g/dL (5.7-8.2)
[2024-01-20] MEDS: TAMSULOSIN HYDROCHLORIDE 0.4 MG CAP PO SCH (09:04)
[2024-01-20] MEDS: ATORVASTATIN 20 MG TAB PO SCH (09:05)
[2024-01-20] MEDS: FUROSEMIDE 20 MG TAB PO SCH (09:05)
[2024-01-20] MEDS: POTASSIUM CHLORIDE 8 MEQ TAB PO SCH (09:05)
[2024-01-20] MEDS: amLODIPine BESYLATE 5 MG TAB PO SCH (09:06)
[2024-01-20] MEDS: FINASTERIDE 5 MG TAB PO SCH (09:06)
[2024-01-20] MEDS: LISINOPRIL 20 MG TAB PO SCH (09:06)
[2024-01-20] MEDS: ENOXAPARIN SOD 40 MG/0.4 ML SYRINGE SC SCH (09:10)
[2024-01-20] MEDS: SERTRALINE HCL 50 MG TAB PO SCH (10:00)
[2024-01-20] MEDS ORDERED: NORTRIPTYLINE HCL 25 MG CAP PO SCH (10:00)
[2024-01-20] MEDS: ATENOLOL 25 MG TAB PO SCH (10:00)
[2024-01-20] MEDS: Ferrous Gluconate 324 MG TAB PO SCH (10:00)
[2024-01-20] MEDS ORDERED: OXYB5TAB14 PO (16:16)
[2024-01-20] MEDS ORDERED: QUET100T47 PO (16:16)
[2024-01-21] VITALS (10 sets, daily range): BP systolic 98–142; BP diastolic 69–104; PULSE 54–70; RESP 17–21; TEMP 97.3–98.1; O2SAT 96–99
[2024-01-21 08:06] LABS: PSA Free 0.97 ng/mL
[2024-01-21 09:06] LABS: Prostate Specific Antigen 5.2 ng/mL (0.0-4.0)
[2024-01-22] VITALS (9 sets, daily range): BP systolic 116–136; BP diastolic 70–91; PULSE 50–95; RESP 20–21; TEMP 97.6–98; O2SAT 94–97
[2024-01-22] MEDS: CARISOPRODOL 350 MG TAB PO SCH (13:31)
[2024-01-23] VITALS (11 sets, daily range): BP systolic 96–133; BP diastolic 63–87; PULSE 44–70; RESP 16–18; TEMP 97.5–98.3; O2SAT 95–100
[2024-01-24] VITALS (10 sets, daily range): BP systolic 88–147; BP diastolic 59–99; PULSE 47–91; RESP 16–20; TEMP 97.5–98.3; O2SAT 94–100
[2024-01-24] MEDS ORDERED: LIDOCAINE HCL 5 % TOP OINT 35 GM TOP PRN (11:45)
[2024-01-24] MEDS: SODIUM CHLORIDE 0.9% 1,000 ML IV ONE (12:30)
[2024-01-24] MEDS: SODIUM CHLORIDE 0.9% 1,000 ML IV SCH (15:30)
[2024-01-24] MEDS: LIDOCAINE HCL 5 % TOP OINT 35 GM TOP SCH (18:04)
[2024-01-25] VITALS (8 sets, daily range): BP systolic 96–153; BP diastolic 63–89; PULSE 48–76; RESP 18–20; TEMP 97.7–98.5; O2SAT 95–98
[2024-01-25 13:47] LABS: Hepatitis B Surface Antigen Negative (Negative)
[2024-01-25 14:09] LABS: Hepatitis C Antibody Negative (Negative)
[2024-01-25] MEDS: GLUCAGON EMERG KIT 1mg/1ml IV ONE (14:21)
[2024-01-26] VITALS (8 sets, daily range): BP systolic 101–149; BP diastolic 55–97; PULSE 50–60; RESP 12–18; TEMP 98.3–98.5; O2SAT 95–98
[2024-01-26] MEDS: LISINOPRIL 20 MG TAB PO SCH (10:00)
[2024-01-26] MEDS: KETOROLAC TROMETH 30 MG/ML 1ML VIAL IV PRN (10:17)
[2024-01-26] MEDS: LIDOCAINE 1% (LOCAL ANESTH.) PF 5ml SDV ONE (13:50)
[2024-01-26] MEDS: levoFLOXacin 750MG 150 ML IV ONE (14:00)
[2024-01-26] MEDS: TRANEXAMIC ACID 20 ML ONE (14:31)
[2024-01-26] MEDS: LIDOCAINE W/ EPINEPHRINE 1% 20ML VIAL ONE (14:32)
[2024-01-26] MEDS ORDERED: HYDROmorphone HCL 2 MG/ML VL/or syr ONE (14:34)
[2024-01-26] MEDS: LIDOCAINE 2% JELLY 11ml (GLYDO) ONE (14:37)
[2024-01-26] MEDS: LIDOCAINE 4MG/ML IV SOLN 500 ML IV ONE (14:37)
[2024-01-26] MEDS: MAGNESIUM SULFATE 1GM/100ML 100 ML IV ONE (14:37)
[2024-01-26] MEDS: ceFAZolin 2 GM/D5W50ml 50 ML IV ONE (14:38)
[2024-01-26] MEDS: ACETAMINOPHEN IV 1000 MG/100ML (10MG/ML) IV ONE (14:46)
[2024-01-26] MEDS: GABAPENTIN 300 MG CAP PO ONE (14:46)
[2024-01-26] MEDS: oxyCODONE ER 20 MG TAB PO ONE (14:46)
[2024-01-26] MEDS ORDERED: PROPOFOL 10 MG/ML 20 ML IV ONE ×4 (14:47→20:14)
[2024-01-26] MEDS ORDERED: ONDANSETRON HCL 4 MG/2 ML VIAL ONE (14:47)
[2024-01-26] MEDS ORDERED: ROCURONIUM 10MG/ML 10ML VIAL IV ONE (14:47)
[2024-01-26] MEDS ORDERED: DexAMETHasone SOD PHOS 10MG/1ML VIAL INJ ONE (14:47)
[2024-01-26] MEDS ORDERED: GLYCOPYRROLATE 0.2 MG/ML 1ML VIAL ONE (14:47)
[2024-01-26] MEDS ORDERED: KETAMINE 50mg/ML 1ml syringe ONE (14:59)
[2024-01-26] MEDS ORDERED: fentaNYL CITRATE 100 MCG/2 ML VL ONE (14:59)
[2024-01-26] MEDS: LIDOCAINE 2%HCL (LOCAL ANESTH.) INJ 10ml MDV ONE (15:02)
[2024-01-26 16:49] LABS: INR 1.11 (0.9-1.15); Partial Thromboplastin Time 30.7 SEC (24.5-34.5); Prothrombin Time 11.7 sec (9.3-11.8)
[2024-01-26] MEDS ORDERED: ePHEDrine SULFATE 50 MG/ML AMP ONE (17:23)
[2024-01-26] MEDS: LIDOCAINE W/ EPINEPHRINE 1% 20ML VIAL IJ ONE (18:03)
[2024-01-26] MEDS ORDERED: ACETAMINOPHEN 325 MG TAB PO PRN (20:15)
[2024-01-26] MEDS ORDERED: MORPHINE SULFATE INJ 2 MG/ml SYRG IV PRN (20:15)
[2024-01-26] MEDS ORDERED: fentaNYL CITRATE 100 MCG/2 ML VL IV PRN (21:15)
[2024-01-26] MEDS ORDERED: HYDROmorphone HCL 2 MG/ML VL/or syr IV PRN (21:15)
[2024-01-26] MEDS ORDERED: FLUMAZENIL 0.1 MG/ML INJ 10ML MDV IV PRN (21:15)
[2024-01-26] MEDS ORDERED: hydrALAZINE HCL 20 MG/ML VL IV PRN (21:15)
[2024-01-26] MEDS ORDERED: LABETALOL HCL 5 MG/ML 4ML SYRINGE IV PRN (21:15)
[2024-01-26] MEDS ORDERED: ePHEDrine SULFATE 50 MG/ML AMP IV PRN (21:15)
[2024-01-26] MEDS ORDERED: NALOXONE HCL 0.4 MG/ML VIAL IV PRN (21:15)
[2024-01-26] MEDS ORDERED: ONDANSETRON HCL 4 MG/2 ML VIAL IV PRN (21:15)
[2024-01-26] MEDS: DOCUSATE SOD 100 MG CAP PO SCH (22:00)
[2024-01-26] MEDS ORDERED: ceFAZolin 1GM/50ML 50 ML IV SCH (22:00)
[2024-01-26] MEDS: CYCLOBENZAPRINE HCL 10 MG TAB PO SCH (22:00)
[2024-01-27] VITALS (9 sets, daily range): BP systolic 102–139; BP diastolic 59–83; PULSE 51–69; RESP 15–20; TEMP 97.3–99.6; O2SAT 95–99
[2024-01-27] MEDS: ceFAZolin 1GM/50ML 50 ML IV SCH (00:02)
[2024-01-27] MEDS: D5W/SOD CHLO 0.9% 1,000 ML IV SCH (00:02)
[2024-01-27] MEDS: HYDROcodone-ACET 10/325MG TAB PO PRN (03:53)
[2024-01-27] MEDS: HYDROmorphone HCL 2 MG/ML VL/or syr IV PRN (08:32)
[2024-01-27] MEDS: ONDANSETRON HCL 4 MG/2 ML VIAL IV PRN (08:53)
[2024-01-28] VITALS (15 sets, daily range): BP systolic 92–126; BP diastolic 60–81; PULSE 50–130; RESP 16–24; TEMP 98–99.6; O2SAT 91–99
[2024-01-28 10:09] LABS: Basophils # (auto) 0 10 ^3/uL (0-0.2); Basophils % (auto) 0.2 % (0.0-2.0); Eosinophils # (auto) 0 10 ^3/uL (0-0.8); Hematocrit 33.2 % (41.0-53.0); Hemoglobin 10.6 g/dL (13.5-17.5); Lymphocytes # (auto) 0.6 10 ^3/uL (0.4-5.4); Lymphocytes % (auto) 6.4 % (10.0-50.0); Mean Corpuscular Hemoglobin 26.1 pg (28.0-32.0); Mean Corpuscular Hgb Conc. 31.9 g/dL (32.0-36.0); Mean Corpuscular Volume 81.7 fL (80.0-100.0); Monocytes # (auto) 0.9 10 ^3/uL (0-1.3); Monocytes % (auto) 9.6 % (0.0-12.0); Neutrophils % (auto) 83.8 % (37.0-80.0); Red Blood Cells 4.06 10^6/uL (4.5-5.90); Red Cell Distribution Width 15.6 % (11.8-14.3); White Blood Cell 9.6 10^3/uL (4.4-10.8)
[2024-01-28 10:40] LABS: Alanine Aminotransferase 72 U/L (7-40); Alkaline Phosphatase 86 U/L (46-116); Anion Gap 2 (5-15); Aspartate Aminotransferase 102 U/L (13-40); BUN/Creatinine Ratio 12.5 (10.0-20.0); Blood Urea Nitrogen 12 mg/dL (9-23); Calcium 9.3 mg/dL (8.5-10.1); Carbon Dioxide 27 mmol/L (20-30); Chloride 110 mmol/L (98-107); Glucose 125 mg/dL (74-106); Potassium 4.3 mmol/L (3.5-5.1); Sodium 139 mmol/L (136-145)
[2024-01-28 10:41] LABS: Albumin 3.8 g/dL (3.2-4.8); Bilirubin, Total 0.5 mg/dL (0.2-1.0)
[2024-01-28] MEDS: IPRATROPIUM BROM 0.5 MG/2.5ML INH SOL NEB SCH (14:58)
[2024-01-28] MEDS: ALBUTEROL SULF 2.5 MG/0.5ML(0.5%) NEB SOLN NEB SCH (14:58)
[2024-01-28] MEDS: ACETAMINOPHEN 325 MG TAB PO PRN (16:07)
[2024-01-29] VITALS (13 sets, daily range): BP systolic 104–140; BP diastolic 73–95; PULSE 84–135; RESP 16–19; TEMP 97.7–99; O2SAT 91–100
[2024-01-29 07:04] LABS: COVID19 ANTIGEN SOFIA FIA NEGATIVE (NEGATIVE)
[2024-01-29] MEDS: oxyCODONE HCL 5MG TAB PO PRN (09:38)
[2024-01-29] MEDS ORDERED: fentaNYL CITRATE 100 MCG/2 ML VL ONE (12:08)
[2024-01-29] MEDS ORDERED: MIDAZOLAM HCL 2MG/2ML 2ml VIAL (1mg/ml) ONE (12:08)
[2024-01-29] MEDS ORDERED: KETAMINE 50mg/ML 1ml syringe ONE (12:13)
[2024-01-29] MEDS ORDERED: PROPOFOL 10 MG/ML 20 ML IV ONE ×2 (12:22→12:39)
[2024-01-29] MEDS ORDERED: ONDANSETRON HCL 4 MG/2 ML VIAL ONE (12:28)
== END 2024-01-29 15:55 | DRG 455 ==
LOC: ER 05:22 → EDBD 05:22 → TELE 10:34 → TELE-EAST 15:43
PROVIDERS: ADMIT Family Medicine; ATTEND Family Medicine
PROC: 01NB0ZZ Release Lumbar Nerve, Open Approach (ICD-10-PCS; 2024-01-26)
PROC: 00NY0ZZ Release Lumbar Spinal Cord, Open Approach (ICD-10-PCS; 2024-01-26)
PROC: 4A11X4G Monitoring of Peripheral Nervous Electrical Activity, Intraoperative, External Approach (ICD-10-PCS; 2024-01-26)
PROC: 0SG1071 Fusion of 2 or more Lumbar Vertebral Joints with Autologous Tissue Substitute, Posterior Approach, Posterior Column, Open Approach (ICD-10-PCS; 2024-01-26)
PROC: 0SG10AJ Fusion of 2 or more Lumbar Vertebral Joints with Interbody Fusion Device, Posterior Approach, Anterior Column, Open Approach (ICD-10-PCS; principal; 2024-01-26 17:00)
DX: M48.062 Spinal stenosis, lumbar region with neurogenic claudication (principal); K21.9 Gastro-esophageal reflux disease without esophagitis; D64.9 Anemia, unspecified; E66.9 Obesity, unspecified; E78.5 Hyperlipidemia, unspecified; F32.A Depression, unspecified; G89.29 Other chronic pain; I10 Essential (primary) hypertension; J45.909 Unspecified asthma, uncomplicated; K59.00 Constipation, unspecified; K62.3 Rectal prolapse; M48.07 Spinal stenosis, lumbosacral region; F41.9 Anxiety disorder, unspecified; M51.16 Intervertebral disc disorders with radiculopathy, lumbar region; N40.1 Benign prostatic hyperplasia with lower urinary tract symptoms; I44.0 Atrioventricular block, first degree; E78.00 Pure hypercholesterolemia, unspecified; I95.2 Hypotension due to drugs; T40.2X5A Adverse effect of other opioids, initial encounter; Z20.822 Contact with and (suspected) exposure to COVID-19; Z88.0 Allergy status to penicillin; Z88.8 Allergy status to other drugs, medicaments and biological substances; Z79.899 Other long term (current) drug therapy; Z87.442 Personal history of urinary calculi; Z86.73 Personal history of transient ischemic attack (TIA), and cerebral infarction without residual deficits; Z90.49 Acquired absence of other specified parts of digestive tract; Z80.1 Family history of malignant neoplasm of trachea, bronchus and lung; Z82.49 Family history of ischemic heart disease and other diseases of the circulatory system; Z68.37 Body mass index [BMI] 37.0-37.9, adult; Y92.89 Other specified places as the place of occurrence of the external cause
CPT/HCPCS: 36415; 71045; 72100; 72131; 72148; 74176; 76000; 80053; 80061; 81001; 83690; 84154; 84484; 85025; 85610; 85730; 86803; 86850; 86900; 86901; 87340; 87426; 93306; 93926; 93971; 94640; 96374; 97110; 97116; 97163; 97530; G0378; J0131; J1100; J1885; J1956; J2001; J2250; J2405; J2704; J3490; J7042